=== PATIENT | female | born 1975 | race Hispanic/Latino ===

== ENCOUNTER 2025-01-29 05:59 | Emergency (ER) | payer SELFPAY ==
--- NOTE | ~2025-01-29 | CT_ITS ---
EXAMINATION: CT abdomen pelvis w con DATE: 01/29/2025 09:07 INDICATION: Lower abdominal pain TECHNIQUE: Computed tomography (CT) of the abdomen and pelvis was performed with 100 mL Omnipaque-350 intravenous contrast. Automated exposure control and iterative reconstruction technique were employe d. The dose-length product was 426.79 mGy-cm. COMPARISON: None FINDINGS: Dependent atelectasis in the bilateral lower lobes. Heart size is normal. No pericardial or pleural e ffusion. Likely diffuse hepatic steatosis although specificities decreased by the presence of intrave nous contrast. Gallbladder, spleen, pancreas, bilateral adrenal glands and kidneys are normal. There is mild scattered diverticulosis without adjacent from trace stranding to suggest diverticulitis. No bowel obstruction. The appendix is not visualized. No pericecal inflammatory change to suggest acute appendicitis. 1 cm enhancing uterine fibroid. Bladder and bilateral adnexa are unremarkable. No free intraperitoneal gas or fluid. No pathologically enlarged abdominal or pelvic lymphadenopathy. Bones a re unremarkable. IMPRESSION: 1. No acute intra-abdominal/pelvic process. 2. Diffuse hepatic steatosis. 3. Mild diverticulosis. 4. 1 cm uterine fibroid. Reviewed, dictated and finalized at location A.
[2025-01-29 06:03] VITALS: BP 166/100; PULSE 67; RESP 16; TEMP 36.7; O2SAT 99
--- NOTE | 2025-01-29 07:25 | ED_ITS ---
HPI - General Adult General Chief complaint: Unspecified Stated complaint: Pelvic/hip pain radiating down legs Time Seen by Provider: 01/29/25 06:55 History of Present Illness HPI narrative: 49-year-old female present to the emergency department for evaluation for lower abdominal pain that radiates down both legs. Patient does describe some nausea but denies any change in urinary habits other than having some pain with urination. Patient does have a prior surgical history appendectomy. Patient denies any falls or injury. Patient's son was translating and preferred to translate rather than using the translation services. Related Data Allergies Allergy/AdvReac Type Severity Reaction Status Date / Time No Known Allergies Allergy Verified 01/29/25 07:54 Review of Systems 2 Review of Systems: All systems reviewed & are unremarkable except as noted in HPI and below Exam 2 Narrative: APPEARANCE: Well appearing, no pain, no distress, well-nourished. HEAD: normocephalic, atraumatic. EYES: PERRLA/EOMI, conjunctivae clear. NOSE: Normal no drainage EARS:TMS clear with good light reflex. THROAT: Pharynx clear, no exudate. NECK: Supple. No adenopathy, no masses. RESPIRATORY: Airway patent, respirations nonlabored. Clear to auscultation bilaterally, no rales, rhonchi, wheezing. CARDIOVASCULAR: Regular rate and rhythm without murmurs rubs or gallops. ABDOMINAL: Lower abdominal tenderness to palpation MUSCULOSKELETAL: Moves all extremities. No reproducible lower leg tenderness to palpation, no cellulitis, no edema NEURO: Alert. Cranial nerves II through XII intact. Good gait. Good coordination SKIN: Warm, dry. Normal Color Course Vital Signs Vital signs: Vital Signs Temperature 98.0 F 01/29/25 06:03 Pulse Rate 67 01/29/25 06:03 Respiratory Rate 16 01/29/25 06:03 Blood Pressure 166/100 H 01/29/25 06:03 Pulse Oximetry 99 01/29/25 06:03 Oxygen Delivery Room Air 01/29/25 06:03 Temperature 98.0 F 01/29/25 06:03 Pulse Rate 65 01/29/25 09:45 Respiratory Rate 14 01/29/25 09:45 Blood Pressure 155/75 H 01/29/25 09:45 Pulse Oximetry 99 01/29/25 09:45 Oxygen Delivery Room Air 01/29/25 06:03 Medical Decision Making [facility] Narrative Medical decision making narrative: 49-year-old female presenting to the emergency department for evaluation for lower abdominal pain. Patient is currently afebrile with no leukocytosis hemoglobin of 13.6. Patient has an INR 1.0. No significant abnormalities on the patient's CMP UA was negative for infection or for hematuria and patient's CT scan showed no acute abnormalities. She was advised to take Tylenol and ibuprofen pain control. All questions concerns were addressed. Differential Diagnosis Differential Diagnosis: DVT, sciatica, UTI, kidney infection, colitis, diverticulitis, appendicitis Vital Signs Vital Signs: Vital Signs Temperature 98.0 F 01/29/25 06:03 Pulse Rate 67 01/29/25 06:03 Respiratory Rate 16 01/29/25 06:03 Blood Pressure 166/100 H 01/29/25 06:03 Pulse Oximetry 99 01/29/25 06:03 Oxygen Delivery Room Air 01/29/25 06:03 Temperature 98.0 F 01/29/25 06:03 Pulse Rate 65 01/29/25 09:45 Respiratory Rate 14 01/29/25 09:45 Blood Pressure 155/75 H 01/29/25 09:45 Pulse Oximetry 99 01/29/25 09:45 Oxygen Delivery Room Air 01/29/25 06:03 Lab Data Lab results reviewed: Yes I reviewed the patient's lab results. 01/29/25 07:46 01/29/25 08:07 Labs: Lab Results 01/29/25 01/29/25 01/29/25 Range/Units 07:46 08:07 08:48 WBC 6.8 (4.5-10.0) K/mm3 RBC 4.59 (4.2-5.4) M/mm3 Hgb 13.6 (12.0-15.0) g/dL Hct 40.9 (37.0-47.0) % MCV 89.1 (80-100) fl MCH 29.6 (26-34) pg MCHC 33.3 (32-36) g/dl RDW 13.2 (11.5-14.5) % Plt Count 245 (150-375) k/mm3 MPV 10.9 H (7.4-10.4) fl Immature Gran % (Auto) 0.1 (0-0.5) % Neut % (Auto) 57.9 (45.5-73.1) % Lymph % (Auto) 33.6 (18.3-44.2) % [place] % (Auto) 5.3 (2.6-8.5) % Eos % (Auto) 2.2 (0-4.4) % Baso % (Auto) 0.9 (0.2-1.2) % Lymph # (Auto) 2.28 (0.9-3.2) K/mm3 [place] # (Auto) 0.4 (0.1-0.6) K/mm3 Eos # (Auto) 0.2 (0-0.3) K/mm3 Baso # (Auto) 0.1 (0.0-0.1) K/mm3 Abs Immat Gran (auto) 0.01 (0.00-0.031) K/mm3 Absolute Neuts (auto) 3.9 (1.3-6.7) K/mm3 Absolute Nucleated RBC 0.000 (0.0-0.012) K/mm3 Nucleated RBC % 0.0 (0.0-0.2) % PT 13.2 (11.1-14.7) Seconds INR 1.0 APTT 27.0 (22.3-36.8) Seconds Sodium 141 (137-145) mmol/L Potassium 3.9 (3.4-5.0) mmol/L Chloride 106 (98-107) mmol/L Carbon Dioxide 27 (22-30) mmol/L Anion Gap 8 (4-12) mmol/L BUN 9 (7-17) mg/dL Creatinine 0.45 L (0.7-1.0) mg/dL Estim Creat Clear Calc Not Reportable Estimated GFR > 60 (59 - ) Glucose 128 H (65-110) mg/dL Lactic Acid 1.3 (0.7-2.0) mmol/L Calcium 8.1 L (8.4-10.2) mg/dL Total Bilirubin 0.2 (0.2-1.3) mg/dL AST 54 H (14-36) U/L ALT 69 H (6-35) U/L Alkaline Phosphatase 165 H (38-126) U/L Total Protein 8.0 (6.3-8.2) g/dL Albumin 4.1 (3.5-5.1) g/dL Lipase 122 (23-300) U/L Urine Color Yellow (Yellow) Urine Appearance Clear (Clear) Urine pH 7.0 (5.0-9.0) Ur Specific [place] 1.013 (1.001-1.035) Urine Protein Negative (Negative) mg/dL Urine Glucose (UA) Negative (Negative) mg/dL Urine Ketones Negative (Negative) mg/dL Ur Blood (Man) Trace (Negative) Urine Nitrate Negative (Negative) Urine Bilirubin Negative (Negative) Urine Urobilinogen 0.2 (<2.0) mg/dL Leukocyte Esterase Rfl Negative (Negative) EMEKA/UL Urine RBC 0-2 (0-2) /hpf Urine WBC 6-10 H (0-3) /hpf Ur Squamous Epith Cells Few (Few) /hpf Urine Bacteria Rare /hpf Urine Casts 0-2 POC Urine HCG, Qual Negative (Negative) Imaging Data Radiologist's impression: Impressions Abdomen/Pelvis CT 01/29/25 09:14 IMPRESSION: 1. No acute intra-abdominal/pelvic process. 2. Diffuse hepatic steatosis. 3. Mild diverticulosis. 4. 1 cm uterine fibroid. Discharge Plan Discharge Clinical Impression: Bilateral lower abdominal pain Patient Disposition: Home Condition: Stable Instructions: Antibiotic Form, Abdominal Pain (ED) Additional Instructions: Tylenol and ibuprofen for pain control. Have close follow-up with your primary care physician. If you have any worsening symptoms then please call or return to the emergency department. Patient Language: Cambodian Follow-up/Referrals: PHYSICIAN,EXECUTIVE DIRECTOR OF NURSING [Primary Care Provider] -
[2025-01-29 07:51] VITALS: BP 145/85; PULSE 57; RESP 16; RESP 20; O2SAT 98; O2SAT 99
[2025-01-29 07:59] LABS: Basophils Absolute Auto 0.1 K/mm3 (0.0-0.1); Basophils Percent Auto 0.9 % (0.2-1.2); Eosinophils Absolute Auto 0.2 K/mm3 (0-0.3); Eosinophils Percent Auto 2.2 % (0-4.4); Hematocrit 40.9 % (37.0-47.0); Hemoglobin 13.6 g/dL (12.0-15.0); Immature Granulocyte Absolute 0.01 K/mm3 (0.00-0.031); Immature Granulocyte Percent A 0.1 % (0-0.5); Lymphocytes Absolute Auto 2.28 K/mm3 (0.9-3.2); Lymphocytes Percent Auto 33.6 % (18.3-44.2); Mean Corpuscular HGB Conc 33.3 g/dl (32-36); Mean Corpuscular Hemoglobin 29.6 pg (26-34); Mean Corpuscular Volume 89.1 fl (80-100); Mean Platelet Volume 10.9 fl (7.4-10.4); Monocytes Absolute Auto 0.4 K/mm3 (0.1-0.6); Monocytes Percent Auto 5.3 % (2.6-8.5); Neutrophils Absolute Auto 3.9 K/mm3 (1.3-6.7); Neutrophils Percent Auto 57.9 % (45.5-73.1); Platelet Count Result 245 k/mm3 (150-375); Red Blood Count 4.59 M/mm3 (4.2-5.4); Red Cell Distribution Width 13.2 % (11.5-14.5); White Blood Count 6.8 K/mm3 (4.5-10.0)
[2025-01-29 08:01] VITALS: BP 144/92; PULSE 56; RESP 24; O2SAT 97
[2025-01-29 08:03] LABS: Add Urine Microscopic? YES; Appearance Urine Clear (Clear); Bacteria Urine Rare /hpf; Bilirubin Urine Negative (Negative); Blood Urine Trace (Negative); Color Urine Yellow (Yellow); Glucose Urine UA Negative (Negative); Ketones Urine Negative (Negative); Leukocyte Esterase Ur Negative LEU/UL (Negative); Nitrate Urine Negative (Negative); Non Pathogenic Casts 0-2; Protein Urine Negative (Negative); RBC Urine 0-2 /hpf (0-2); Specific Grav Ur 1.013 (1.001-1.035); Squamous Epithelial Cell Urine Few /hpf (Few); Urobilinogen Urine 0.2 mg/dL (<2.0)
[2025-01-29 08:08] LABS: Lactic Acid Reflex 1.3 mmol/L (0.7-2.0)
[2025-01-29] MEDS: LACTATED RINGERS 1,000 ML 999 ML IV CONT (08:08)
[2025-01-29] MEDS: HYDROmorphone HCL INJ (*CRX) 2 MG/ML VIAL 1 MG IV PUSH (08:08)
[2025-01-29 08:20] LABS: Prothrombin Time 13.2 Seconds (11.1-14.7)
[2025-01-29 08:33] LABS: Alanine Aminotransferase 69 U/L (6-35); Albumin Level 4.1 g/dL (3.5-5.1); Alkaline Phosphatase 165 U/L (38-126); Anion Gap 8 mmol/L (4-12); Aspartate Amino Transferase 54 U/L (14-36); Bilirubin,Total 0.2 mg/dL (0.2-1.3); Blood Urea Nitrogen 9 mg/dL (7-17); Calcium 8.1 mg/dL (8.4-10.2); Carbon Dioxide 27 mmol/L (22-30); Chloride 106 mmol/L (98-107); Estimated Glomerular Filt Rate > 60; Glucose 128 mg/dL (65-110); Lipase 122 U/L (23-300); Potassium 3.9 mmol/L (3.4-5.0); Sodium 141 mmol/L (137-145)
[2025-01-29 08:45] VITALS: BP 145/84; PULSE 55; RESP 15; O2SAT 98
[2025-01-29 08:49] LABS: BEDSIDEPREGUCG Negative (Negative)
[2025-01-29 09:30] VITALS: BP 143/81; PULSE 60; RESP 16; O2SAT 99
[2025-01-29 09:45] VITALS: BP 155/75; PULSE 65; RESP 14; O2SAT 99
== END 2025-01-29 10:25 | disposition home or self-care (01) ==
PROVIDERS: Emergency Provider Emergency Medicine
DX: R10.30 Lower abdominal pain, unspecified (principal); R10.31 Right lower quadrant pain; D25.9 Leiomyoma of uterus, unspecified; K76.0 Fatty (change of) liver, not elsewhere classified; K57.90 Diverticulosis of intestine, part unspecified, without perforation or abscess without bleeding
CPT/HCPCS: 36415; 74177; 80053; 81001; 81025; 83605; 83690; 85025; 85610; 85730; 87086; 96361; 96374; 99284; J1171; J7120; Q9967